=== PATIENT | male | born 1975 | race Hispanic/Latino ===

== ENCOUNTER 2021-11-28 19:27 | Emergency (ER) | payer BC | END 2021-11-28 21:10 | disposition home or self-care (01) | LOC: ERS 19:27 | DX: Z02.83 Encounter for blood-alcohol and blood-drug test (principal) | CPT/HCPCS: 99281 ==

== ENCOUNTER → 2022-01-27 | Outpatient (CLI) | payer OTHER | LOC: SCSMRI 11:00 | PROVIDERS: ATTEND Family Medicine | DX: S40.011D Contusion of right shoulder, subsequent encounter (principal); M75.101 Unspecified rotator cuff tear or rupture of right shoulder, not specified as traumatic ==